=== PATIENT | male | born 1950 | race Caucasian/White ===

== ENCOUNTER 2021-05-19 16:43 | Inpatient (IN) | payer BC, MEDICARE ==
[2021-05-19] MEDS ORDERED: IPRATROPIUM-ALBUTEROL 3 ML NEB INHALATION STA (18:49)
[2021-05-19] MEDS ORDERED: SODIUM CHLORIDE 0.9% 1,000 ML IV STA (18:50)
--- NOTE | 2021-05-19 18:54 | ED ---
General Adult HPI - General Chief complaint: Psychiatric Symptoms Stated complaint: Mental health, Diabetic Time Seen by Provider: 05/19/21 17:05 Source: patient, family, RN notes reviewed, old records reviewed Mode of arrival: ambulatory - History of Present Illness Initial comments: This is a 70-year-old male who presents emergency department with past medical history significant for heart attack COPD and smoking he has also a type II diabetic. Patient states he no longer takes any of his medications for diabetes. Sister states he was brought in because multiple days they have been doing a welfare check on him he is not taking care of himself is not eating and he is hallucinating. Patient believes people snuck into his house where they're with him and he believes this is not hallucinations and his mind. Patient also is hallucinating and seeing bugs as well as been in the room. Patient denies any headache patient denies any numbness weakness. Patient denies any chest pain palpitations or difficulty breathing. Patient does admit that he is slightly short of breath. Patient also complains some increased edema to his legs over the last 3 weeks. Patient denies any recent fever chills or cough per patient denies abdominal pain patient denies nausea vomiting diarrhea. Patient states he sees people in the house that if snuck in a also states he is seeing bugs and things crawling on the [place]. Patient denies any drug use or alcohol use. - Related Data Home Medications Medication Instructions Recorded Confirmed Acarbose [Precose] 50 mg PO BID 05/16/15 06/25/15 Aspirin [Adult Low Dose Aspirin EC] 81 mg PO DAILY 05/16/15 06/25/15 Atorvastatin [Lipitor] 10 mg PO HS 05/16/15 06/25/15 Lisinopril [Prinivil] 5 mg PO W/SUPPER 05/16/15 06/25/15 metFORMIN HCL [Glucophage] 1,000 mg PO BID 05/16/15 06/25/15 Previous Rx's Medication Instructions Recorded Docusate [Colace] 100 mg PO BID #30 capsule 05/17/15 Allergies Allergy/AdvReac Type Severity Reaction Status Date / Time No Known Allergies Allergy Verified 05/19/21 17:10 Review of Systems ROS Statement: Those systems with pertinent positive or pertinent negative responses have been documented in the HPI. ROS Other: All systems not noted in ROS Statement are negative. Past Medical History Past Medical History: Diabetes Mellitus, Hyperlipidemia, Sleep Apnea/CPAP/BIPAP Additional Past Medical History / Comment(s): no cpap used History of Any Multi-Drug Resistant Organisms: None Reported Past Surgical History: Hernia Repair, Tonsillectomy Additional Past Surgical History / Comment(s): fatty tumor removed from upper back, abdominal hernias x 2 most recent 05/17/15 Past Anesthesia/Blood Transfusion Reactions: Previous Problems w/ Anesthesia, Family History of Problems w/ Anesthesia Additional Past Anesthesia/Blood Transfusion Reaction / Comment(s): mother "can't take anesthesia" pt not sure why. pt -hx diff intubation for a surgery about 20 years ago-not sure of surgeon, not done at [facility]. Past Psychological History: No Psychological Hx Reported Smoking Status: Current every day smoker Past Alcohol Use History: None Reported Past Drug Use History: None Reported - Past Family History Mother Family Medical History: Coronary Artery Disease (CAD) Additional Family Medical History / Comment(s): mac degeneration legally blind Father Family Medical History: No Reported History General Exam - General Exam Comments Initial Comments: GENERAL: Patient is well-developed and well-nourished. Patient is nontoxic and well- hydrated and is in mild distress. ENT: Neck is soft and supple. No significant lymphadenopathy is noted. Oropharynx is clear. Dry mucous membranes. Neck has full range of motion without e liciting any pain. EYES: The sclera were anicteric and conjunctiva were pink and moist. Extraocular movements were intact and pupils were equal round and reactive to light. Eyelids were unremarkable. PULMONARY: Patient has bilateral wheezing with crackles bilaterally more the left than the right. CARDIOVASCULAR: There is a regular rate and rhythm without any murmurs gallops or rubs. ABDOMEN: Soft and nontender with normal bowel sounds. SKIN: Skin is clear with no lesions or rashes and otherwise unremarkable. NEUROLOGIC: Patient is alert and oriented x3. Cranial nerves II through XII are grossly intact. Motor and sensory are also intact. Normal speech, volume and content. Symmetrical smile. MUSCULOSKELETAL: Normal extremities with adequate strength and full range of motion. 2+ bilaterally LYMPHATICS: No significant lymphadenopathy is noted PSYCHIATRIC: Patient is hallucinating seeing people in his house and seeing bugs in the room. Course Vital Signs 05/19/21 05/19/21 05/19/21 17:02 17:48 19:42 Temperature 97.1 F L Pulse Rate 91 80 82 Respiratory 18 20 20 Rate Blood Pressure 88/63 98/74 O2 Sat by Pulse 93 L 93 L Oximetry 05/19/21 05/19/21 19:50 20:30 Temperature Pulse Rate 80 83 Respiratory 20 Rate Blood Pressure 92/61 O2 Sat by Pulse 93 L Oximetry Medical Decision Making - Medical Decision Making EKG shows a regular rhythm at 80 bpm there is no P waves noted so it could be junctional. QRS is 165 Q-T intervals 472 QTC is 517. Patient has a right bundle branch block. Chest x-ray shows bilateral pleural effusions and pulmonary edema. I spoke with some physicians agreed to admit the patient admitted the patient wrote admitting orders. Patient received Lasix - Lab Data Result diagrams: 05/19/21 18:59 05/19/21 18:59 Lab Results 05/19/21 05/19/21 05/19/21 Range/Units 18:59 18:59 18:59 WBC 6.0 (3.8-10.6) k/uL RBC 4.80 (4.30-5.90) m/uL Hgb 14.6 (13.0-17.5) gm/dL Hct 46.7 (39.0-53.0) % MCV 97.3 (80.0-100.0) fL MCH 30.4 (25.0-35.0) pg MCHC 31.2 (31.0-37.0) g/dL RDW 14.0 (11.5-15.5) % Plt Count 223 (150-450) k/uL MPV 10.0 Neutrophils % 75 % Lymphocytes % 14 % Monocytes % 8 % Eosinophils % 1 % Basophils % 1 % Neutrophils # 4.5 (1.3-7.7) k/uL Lymphocytes # 0.8 L (1.0-4.8) k/uL Monocytes # 0.5 (0-1.0) k/uL Eosinophils # 0.0 (0-0.7) k/uL Basophils # 0.0 (0-0.2) k/uL Hypochromasia Moderate PT 11.7 (9.0-12.0) sec INR 1.1 (<1.2) APTT 28.0 (22.0-30.0) sec Sodium 136 L (137-145) mmol/L Potassium 4.9 (3.5-5.1) mmol/L Chloride 103 (98-107) mmol/L Carbon Dioxide 26 (22-30) mmol/L Anion Gap 7 mmol/L BUN 37 H (9-20) mg/dL Creatinine 0.97 (0.66-1.25) mg/dL Est GFR (CKD-EPI)AfAm >90 (>60 ml/min/1.73 sqM) Est GFR (CKD-EPI)NonAf 79 (>60 ml/min/1.73 sqM) Glucose 91 (74-99) mg/dL Calcium 8.8 (8.4-10.2) mg/dL Total Bilirubin 0.8 (0.2-1.3) mg/dL AST 27 (17-59) U/L ALT 13 (4-49) U/L Alkaline Phosphatase 166 H (38-126) U/L Troponin I (0.000-0.034) ng/mL NT-Pro-B Natriuret Pep pg/mL Total Protein 5.7 L (6.3-8.2) g/dL Albumin 2.9 L (3.5-5.0) g/dL Urine Color Urine Appearance (Clear) Urine pH (5.0-8.0) Ur Specific [place] (1.001-1.035) Urine Protein (Negative) Urine Glucose (UA) (Negative) Urine Ketones (Negative) Urine Blood (Negative) Urine Nitrite (Negative) Urine Bilirubin (Negative) Urine Urobilinogen (<2.0) mg/dL Ur Leukocyte Esterase (Negative) Urine RBC (0-5) /hpf Urine WBC (0-5) /hpf Ur Squamous Epith Cells (0-4) /hpf Urine Bacteria (None) /hpf Hyaline Casts (0-2) /lpf Urine Mucus (None) /hpf Urine Opiates Screen (NotDetected) Ur Oxycodone Screen (NotDetected) Urine Methadone Screen (NotDetected) Ur Propoxyphene Screen (NotDetected) Ur Barbiturates Screen (NotDetected) U Tricyclic Antidepress (NotDetected) Ur Phencyclidine Scrn (NotDetected) Ur Amphetamines Screen (NotDetected) U Methamphetamines Scrn (NotDetected) U Benzodiazepines Scrn (NotDetected) Urine Cocaine Screen (NotDetected) U Marijuana (THC) Screen (NotDetected) Acetone, Qual Positive (Negative) Coronavirus (PCR) (Not Detectd) 05/19/21 05/19/21 05/19/21 Range/Units 18:59 18:59 18:59 WBC (3.8-10.6) k/uL RBC (4.30-5.90) m/uL Hgb (13.0-17.5) gm/dL Hct (39.0-53.0) % MCV (80.0-100.0) fL MCH (25.0-35.0) pg MCHC (31.0-37.0) g/dL RDW (11.5-15.5) % Plt Count (150-450) k/uL MPV Neutrophils % % Lymphocytes % % Monocytes % % Eosinophils % % Basophils % % Neutrophils # (1.3-7.7) k/uL Lymphocytes # (1.0-4.8) k/uL Monocytes # (0-1.0) k/uL Eosinophils # (0-0.7) k/uL Basophils # (0-0.2) k/uL Hypochromasia PT (9.0-12.0) sec INR (<1.2) APTT (22.0-30.0) sec Sodium (137-145) mmol/L Potassium (3.5-5.1) mmol/L Chloride (98-107) mmol/L Carbon Dioxide (22-30) mmol/L Anion Gap mmol/L BUN (9-20) mg/dL Creatinine (0.66-1.25) mg/dL Est GFR (CKD-EPI)AfAm (>60 ml/min/1.73 sqM) Est GFR (CKD-EPI)NonAf (>60 ml/min/1.73 sqM) Glucose (74-99) mg/dL Calcium (8.4-10.2) mg/dL Total Bilirubin (0.2-1.3) mg/dL AST (17-59) U/L ALT (4-49) U/L Alkaline Phosphatase (38-126) U/L Troponin I 0.017 (0.000-0.034) ng/mL NT-Pro-B Natriuret Pep 7010 pg/mL Total Protein (6.3-8.2) g/dL Albumin (3.5-5.0) g/dL Urine Color Urine Appearance (Clear) Urine pH (5.0-8.0) Ur Specific [place] (1.001-1.035) Urine Protein (Negative) Urine Glucose (UA) (Negative) Urine Ketones (Negative) Urine Blood (Negative) Urine Nitrite (Negative) Urine Bilirubin (Negative) Urine Urobilinogen (<2.0) mg/dL Ur Leukocyte Esterase (Negative) Urine RBC (0-5) /hpf Urine WBC (0-5) /hpf Ur Squamous Epith Cells (0-4) /hpf Urine Bacteria (None) /hpf Hyaline Casts (0-2) /lpf Urine Mucus (None) /hpf Urine Opiates Screen (NotDetected) Ur Oxycodone Screen (NotDetected) Urine Methadone Screen (NotDetected) Ur Propoxyphene Screen (NotDetected) Ur Barbiturates Screen (NotDetected) U Tricyclic Antidepress (NotDetected) Ur Phencyclidine Scrn (NotDetected) Ur Amphetamines Screen (NotDetected) U Methamphetamines Scrn (NotDetected) U Benzodiazepines Scrn (NotDetected) Urine Cocaine Screen (NotDetected) U Marijuana (THC) Screen (NotDetected) Acetone, Qual (Negative) Coronavirus (PCR) Not Detected (Not Detectd) 05/19/21 Range/Units 20:55 WBC (3.8-10.6) k/uL RBC (4.30-5.90) m/uL Hgb (13.0-17.5) gm/dL Hct (39.0-53.0) % MCV (80.0-100.0) fL MCH (25.0-35.0) pg MCHC (31.0-37.0) g/dL RDW (11.5-15.5) % Plt Count (150-450) k/uL MPV Neutrophils % % Lymphocytes % % Monocytes % % Eosinophils % % Basophils % % Neutrophils # (1.3-7.7) k/uL Lymphocytes # (1.0-4.8) k/uL Monocytes # (0-1.0) k/uL Eosinophils # (0-0.7) k/uL Basophils # (0-0.2) k/uL Hypochromasia PT (9.0-12.0) sec INR (<1.2) APTT (22.0-30.0) sec Sodium (137-145) mmol/L Potassium (3.5-5.1) mmol/L Chloride (98-107) mmol/L Carbon Dioxide (22-30) mmol/L Anion Gap mmol/L BUN (9-20) mg/dL Creatinine (0.66-1.25) mg/dL Est GFR (CKD-EPI)AfAm (>60 ml/min/1.73 sqM) Est GFR (CKD-EPI)NonAf (>60 ml/min/1.73 sqM) Glucose (74-99) mg/dL Calcium (8.4-10.2) mg/dL Total Bilirubin (0.2-1.3) mg/dL AST (17-59) U/L ALT (4-49) U/L Alkaline Phosphatase (38-126) U/L Troponin I (0.000-0.034) ng/mL NT-Pro-B Natriuret Pep pg/mL Total Protein (6.3-8.2) g/dL Albumin (3.5-5.0) g/dL Urine Color Yellow Urine Appearance Clear (Clear) Urine pH 5.0 (5.0-8.0) Ur Specific [place] 1.027 (1.001-1.035) Urine Protein 1+ H (Negative) Urine Glucose (UA) Negative (Negative) Urine Ketones Negative (Negative) Urine Blood Negative (Negative) Urine Nitrite Negative (Negative) Urine Bilirubin 1+ H (Negative) Urine Urobilinogen 4.0 (<2.0) mg/dL Ur Leukocyte Esterase Negative (Negative) Urine RBC 4 (0-5) /hpf Urine WBC 3 (0-5) /hpf Ur Squamous Epith Cells 1 (0-4) /hpf Urine Bacteria Rare H (None) /hpf Hyaline Casts 66 H (0-2) /lpf Urine Mucus Rare H (None) /hpf Urine Opiates Screen Not Detected (NotDetected) Ur Oxycodone Screen Not Detected (NotDetected) Urine Methadone Screen Not Detected (NotDetected) Ur Propoxyphene Screen Not Detected (NotDetected) Ur Barbiturates Screen Not Detected (NotDetected) U Tricyclic Antidepress Not Detected (NotDetected) Ur Phencyclidine Scrn Not Detected (NotDetected) Ur Amphetamines Screen Not Detected (NotDetected) U Methamphetamines Scrn Not Detected (NotDetected) U Benzodiazepines Scrn Not Detected (NotDetected) Urine Cocaine Screen Not Detected (NotDetected) U Marijuana (THC) Screen Not Detected (NotDetected) Acetone, Qual (Negative) Coronavirus (PCR) (Not Detectd) Disposition Clinical Impression: Pulmonary edema, Hallucinations Disposition: ADMITTED IP TO THIS HOSP Referrals: None,Stated [Primary Care Provider] - 1-2 days Time of Disposition: 21:35
[2021-05-19 19:15] LABS: Basophils % (A) 1 %; Eosinophils % (A) 1 %; HCT 46.7 % (39.0-53.0); HGB 14.6 gm/dL (13.0-17.5); Hypochromasia Moderate; Lymphocytes # (A) 0.8 k/uL (1.0-4.8); Lymphocytes % (A) 14 %; MCH 30.4 pg (25.0-35.0); MCHC 31.2 g/dL (31.0-37.0); MCV 97.3 fL (80.0-100.0); Monocytes # (A) 0.5 k/uL (0-1.0); Monocytes % (A) 8 %; Neutrophils # (A) 4.5 k/uL (1.3-7.7); Neutrophils % (A) 75 %; Platelet Count 223 k/uL (150-450)
[2021-05-19 19:27] LABS: INR 1.1 (<1.2); Prothrombin Time 11.7 sec (9.0-12.0)
[2021-05-19 19:28] LABS: ALT 13 U/L (4-49); AST 27 U/L (17-59); African American GFR (CKD) >90 (>60 ml/min/1.73 sqM); Albumin 2.9 g/dL (3.5-5.0); Alkaline Phosphatase 166 U/L (38-126); Anion Gap 7 mmol/L; Blood Urea Nitrogen 37 mg/dL (9-20); Calcium 8.8 mg/dL (8.4-10.2); Carbon Dioxide 26 mmol/L (22-30); Chloride 103 mmol/L (98-107); Glucose 91 mg/dL (74-99); Non-African American GFR(CKD) 79 (>60 ml/min/1.73 sqM); Sodium 136 mmol/L (137-145); Total Bilirubin 0.8 mg/dL (0.2-1.3); Total Protein 5.7 g/dL (6.3-8.2)
[2021-05-19 19:30] LABS: Potassium 4.9 mmol/L (3.5-5.1)
--- NOTE | 2021-05-19 19:32 | XR ---
EXAMINATION TYPE: XR chest 2V DATE OF EXAM: 05/19/2021 7:27 PM COMPARISON:None TECHNIQUE: Frontal and lateral views of the chest. CLINICAL INDICATION:Male, 70 years old with history of altered mental status; FINDINGS: Lungs/Pleura: There is no evidence of focal consolidation, or pneumothorax. Is blunting of the costo phrenic angles with associated subsegmental atelectasis. Pulmonary vascularity: Unremarkable. Heart/mediastinum: Cardiomediastinal silhouette is partially obscured due to overlying and adjacent o pacities. Musculoskeletal: No acute osseous pathology. IMPRESSION: Cardiomegaly, pulmonary vascular congestion and bilateral pleural effusions. Correlate with BNP for c ongestive heart failure.
--- NOTE | 2021-05-19 19:45 | CT ---
EXAMINATION TYPE: CT brain wo con CT DLP: 1188.4 mGycm, Automated exposure control for dose reduction was used. DATE OF EXAM: 05/19/2021 7:34 PM COMPARISON: None. CLINICAL INDICATION:Male, 70 years old with history of hallucinations, Altered mental status. TECHNIQUE: Brain: Multiple axial CT images of the brain were obtained without IV contrast. FINDINGS: Brain: Extra-axial spaces: No abnormal extra-axial fluid collections. Ventricular system: Within normal limits Cerebral parenchyma: No acute intraparenchymal hemorrhage or mass effect. The greenwood-white junction is well differentiated. Scattered hypoattenuating areas are seen within the white matter. Cerebellum: Unremarkable. Mass effect: No evidence of midline shift. Intracranial vasculature: Atherosclerotic calcifications of the intracranial vessels. Soft tissues: Normal. Calvarium/osseous structures: No depressed skull fracture. Paranasal sinuses and mastoid air cells: Clear. Visualized orbits: Orbital contents are intact. IMPRESSION: 1. No acute intracranial process. 2. Nonspecific white matter changes, likely secondary to chronic small vessel ischemic disease.
[2021-05-19 21:10] LABS: Appearance,Urine Clear (Clear); Bacteria,Urine Rare /hpf; Bilirubin,Urine 1+ (Negative); Blood,Urine Negative (Negative); Color,Urine Yellow; Glucose,Urine (UA) Negative (Negative); Hyaline Casts,Urine 66 /lpf (0-2); Ketones,Urine Negative (Negative); Leukocyte Esterase,Urine Negative (Negative); Mucus,Urine Rare /hpf; Nitrite,Urine Negative (Negative); Protein,Urine 1+ (Negative); RBC,Urine 4 /hpf (0-5); Specific Gravity,Urine 1.027 (1.001-1.035); Squamous Epithelial Cell,Urine 1 /hpf (0-4); WBC,Urine 3 /hpf (0-5)
[2021-05-19 21:16] LABS: Amphetamine Screen,Urine Not Detected (NotDetected); Barbiturate Screen,Urine Not Detected (NotDetected); Benzodiazepines Screen,Urine Not Detected (NotDetected); Cocaine Screen,Urine Not Detected (NotDetected); Methadone Screen, Urine Not Detected (NotDetected); Opiate Screen,Urine Not Detected (NotDetected); Oxycodone Screen, Urine Not Detected (NotDetected); Phencyclidine Screen,Urine Not Detected (NotDetected); Tricyclic Antidepressant,Urine Not Detected (NotDetected); Urn Cannabinoid Scrn Not Detected (NotDetected)
[2021-05-19] MEDS ORDERED: FUROSEMIDE 10 MG/ML 2 ML VIAL IV STA (21:25)
[2021-05-19] MEDS: FUROSEMIDE 10 MG/ML 4 ML VIAL IV SCH (22:08)
[2021-05-20] MEDS ORDERED: IPRATROPIUM-ALBUTEROL 3 ML NEB INHALATION PRN (02:23)
--- NOTE | 2021-05-20 02:43 | P.HPIM ---
History of Present Illness H&P Date: 05/19/21 Chief Complaint: hallucination 70 year old male with hypertension , COPD, DM patient comes in today for evaluation of hallucination . patient sister visits him regularly , and noticed he has not been taking care of himself and now reporting visual hallucination , where he thinks that there are people living with him patient lives alone, he admits to frequent falling ,he does not use any device to help him with ambulation , he has weak vision due to cataract, and has not been taking his meds. he reports orthopnea, dyspnea at rest and bilateral feet swelling. he continues to smoke, and reports decrease PO intake due to difficulty with access to food as he waits for his sister to bring him meals , or grocery . patient otherwise denies any fever, chills, urinary or bowel habit changes, denies nausea vomiting or abd pain . he denies any mental health issues. during my interview he keep turning to his right side to talk to his sister who was not in the room. and I have to remind him that no one is there, then he would ask where did she go. in the ED earlier he was also noted to mention some bugs , which apparently is part of his visual hallucination s he denies taking any recreational drugs or alcohol blood work in the ED overall unremarkable Review of Systems Pertinent positives as noted in HPI. All other systems were reviewed and are negative Past Medical History Past Medical History: Diabetes Mellitus, Hyperlipidemia, Sleep Apnea/CPAP/BIPAP Additional Past Medical History / Comment(s): no cpap used History of Any Multi-Drug Resistant Organisms: None Reported Past Surgical History: Hernia Repair, Tonsillectomy Additional Past Surgical History / Comment(s): fatty tumor removed from upper back, abdominal hernias x 2 most recent 05/17/15 Past Anesthesia/Blood Transfusion Reactions: Previous Problems w/ Anesthesia, Family History of Problems w/ Anesthesia Additional Past Anesthesia/Blood Transfusion Reaction / Comment(s): mother "can't take anesthesia" pt not sure why. pt -hx diff intubation for a surgery about 20 years ago-not sure of surgeon, not done at [facility]. Past Psychological History: No Psychological Hx Reported Smoking Status: Current every day smoker Past Alcohol Use History: None Reported Past Drug Use History: None Reported - Past Family History Mother Family Medical History: Coronary Artery Disease (CAD) Additional Family Medical History / Comment(s): gabriela degeneration legally blind Father Family Medical History: No Reported History Medications and Allergies Home Medications Medication Instructions Recorded Confirmed Type ARIPiprazole [Abilify] 10 mg PO HS 05/19/21 05/19/21 History Cholecalciferol [Vitamin D3 (25 50 mcg PO DAILY 05/19/21 05/19/21 History Mcg = 1000 Iu)] FLUoxetine HCL [PROzac] 20 mg PO DAILY 05/19/21 05/19/21 History FLUoxetine HCL [PROzac] 40 mg PO DAILY 05/19/21 05/19/21 History Ketorolac 0.5% Ophth Soln [Acular 1 drop RIGHT EYE QID 05/19/21 05/19/21 History 0.5%] Loratadine [Claritin] 10 mg PO DAILY 05/19/21 05/19/21 History Melatonin 10 mg PO HS 05/19/21 05/19/21 History Methylphenidate HCl [Metadate CD] 60 mg PO DAILY 05/19/21 05/19/21 History Montelukast [Singulair] 10 mg PO DAILY 05/19/21 05/19/21 History Omeprazole 20 mg PO DAILY 05/19/21 05/19/21 History cloNIDine HCL 0.1 mg PO HS PRN 05/19/21 05/19/21 History Allergies Allergy/AdvReac Type Severity Reaction Status Date / Time No Known Allergies Allergy Verified 05/19/21 21:40 Physical Exam Vitals: Vital Signs Temp Pulse Resp BP Pulse Ox 05/19/21 23:45 88 20 95/57 93 L 05/19/21 22:00 88 20 91/61 92 L 05/19/21 20:30 83 20 92/61 93 L 05/19/21 19:50 80 05/19/21 19:42 82 20 05/19/21 17:48 80 20 98/74 93 L 05/19/21 17:02 97.1 F L 91 18 88/63 93 L Intake and Output 05/19/21 05/19/21 05/20/21 14:59 22:59 06:59 Other: Weight 63.503 kg Constitutional: No acute distress, conversant, pleasant, cachetic Eyes: Anicteric sclerae, moist conjunctiva, Pupils equal round reactive to light ENMT: NC/ echymosis over the right suborbital area Oropharynx clear, no erythema, or exudates Neck: Supple, no masses, + JVD No carotid bruits No thyromegaly Lungs: poor effort, diminished breath sounds Clear to percussion Normal respiratory effort, no accessory muscle use Cardiovascular: Heart distant sounds No murmurs, gallops, or rubs + 2 peripheral edema Abdominal: Soft Nontender, no guarding, rebound or rigidity Abdomen moving with respiration Normoactive bowel sounds No hepatomegaly, No splenomegaly No palpable mass No abdominal wall hernia noted Skin: echymosis over bilateral forearm , otherwise Normal temperature, tone, texture, turgor Extremities: No digital cyanosis Pedal pulses undetectable due to pedal edema , capillary refill immediate Radial pulses intact and symmetrical No calf tenderness Psychiatric: Alert and oriented to person, place Neuro Muscles Strength -4/5 in all 4 extremities Sensation to light touch grossly present throughout Cranial nerves II-XII grossly intact No focal sensory deficits Lymphatics: no palpable cervical or supraclavicular , or inguinal lymph nodes Results CBC & Chem 7: 05/19/21 18:59 05/19/21 18:59 Labs: Abnormal Lab Results - Last 24 Hours (Table) 05/19/21 05/19/21 05/19/21 Range/Units 18:59 18:59 20:55 Lymphocytes # 0.8 L (1.0-4.8) k/uL Sodium 136 L (137-145) mmol/L BUN 37 H (9-20) mg/dL Alkaline Phosphatase 166 H (38-126) U/L Total Protein 5.7 L (6.3-8.2) g/dL Albumin 2.9 L (3.5-5.0) g/dL Urine Protein 1+ H (Negative) Urine Bilirubin 1+ H (Negative) Urine Bacteria Rare H (None) /hpf Hyaline Casts 66 H (0-2) /lpf Urine Mucus Rare H (None) /hpf Assessment and Plan Assessment: failure to thrive progressive dyspnea with pleural effusion rulel out CHF visual hallucination DM hypertension medical non compliance with home meds afib rate controlled , not on anticoagulation plan supportive care monitor electrolytes , avoid refeeding syndrome follow up PO4, Mg , K check echocardiogram IV diuresis with lasix monitor vital signs cardiology eval fall precaution s verify home meds PT eval manager cardiac cath DVT PPX heparin sc tid anticipated length of stay < 2 midnights could not make a decision code status
[2021-05-20 05:52] VITALS: TEMP 97.9
[2021-05-20] MEDS: FUROSEMIDE 10 MG/ML 4 ML VIAL IV SCH (07:01)
[2021-05-20] MEDS ORDERED: PANTOPRAZOLE 40 MG TABLET PO SCH (07:30)
[2021-05-20] MEDS ORDERED: cloNIDine HCL 0.1 MG TAB PO PRN (07:39)
[2021-05-20] MEDS ORDERED: HEPARIN SODIUM,PORCINE/PF 5,000 UNIT/0.5 ML SYRINGE SQ SCH (08:00)
--- NOTE | 2021-05-20 08:14 | XR ---
EXAMINATION TYPE: XR chest 1V portable DATE OF EXAM: 05/20/2021 COMPARISON: Chest x-ray 05/19/2021 HISTORY: Shortness of breath TECHNIQUE: Single frontal view of the chest is obtained. FINDINGS: Bilateral airspace disease has progressed in the interval, bilateral pleural effusions are also present. No evident pneumothorax. Patient is rotated. Heart is obscured by abnormal density wit hin the chest. There are overlying leads. IMPRESSION: Correlate for congestive heart failure, pneumonia not excluded. Follow-up recommended.
[2021-05-20 08:21] VITALS: BP 104/51; PULSE 89; RESP 18
[2021-05-20] MEDS ORDERED: CHOLECALCIFEROL 25 MCG (1000 IU) TABLET PO SCH (09:00)
[2021-05-20] MEDS ORDERED: LORATADINE 10 MG TAB PO SCH (09:00)
[2021-05-20] MEDS ORDERED: MONTELUKAST 10 MG TAB PO SCH (09:00)
[2021-05-20] MEDS ORDERED: KETOROLAC 0.5% OPHTH DROPS 5 ML BTL RIGHT EYE SCH (09:00)
[2021-05-20] MEDS ORDERED: FLUoxetine HCL 20 MG CAP PO SCH ×2 (09:00)
[2021-05-20] MEDS ORDERED: CALCIUM CHLORIDE 100 MG/ML 10 ML SYRINGE ONE (09:30)
[2021-05-20] MEDS ORDERED: SODIUM BICARB 8.4% 50 ML SYR (1 MEQ/ML) ONE (09:30)
[2021-05-20] MEDS ORDERED: EPINEPHrine 10 ML SYRINGE (0.1 MG/ML) ONE (09:30)
[2021-05-20] MEDS ORDERED: ALTEPLASE 50 MG VIAL IV STA (09:43)
--- NOTE | 2021-05-20 10:07 | P.EN ---
I called a CODE BLUE today due to cardiac arrest. Code was called at 9:35 and compressions started immediately. Initial rhythm was asystole. 4 x amps of epi were delivered. Pt also received bicarb amps x 2, calcium chloride amp x 1. Pt was intubated at 0943. Pulse checks at 0938, 0940, 0942, 0944 were PEA. Pulse checks at 0946 and 0948 were again asystole. Code was stopped at 0948, and time of was called at same time. Call was made to patient's sister and message left. Total Code Time is 13 minutes.
--- NOTE | 2021-05-20 10:17 | P.DS ---
Providers Date of admission: 05/19/21 21:36 Expected date of discharge: 05/20/21 Attending physician: Johana Jesus MD Consults: 05/19/21 21:36 Consult Physician Routine Consulting Provider: [facility] Consult Reason/Comments: Pulmonary edema Do you want consulting provider notified?: Yes Primary care physician: Stated None Hospital Course: Congestive Heart Failure Exacerbation, unknown EF COPD Toxic/Metabolic Encephalopathy with visual hallucinations HTN DM II Permanent Atrial Fibrillation, rate controlled 70 year old male with hypertension , COPD and active smoker, DM, CHF. Pt presented for evaluation with sister who reported he had a hallucination and he hmiself reported increasing orthopnea, dyspnea even at rest. CXR demonstrated b/l vascular congestion and pleural effusions. Pt was started on oxygen and IV diuretics. Pt was also having hallucinations throughout admitting providers visit. This morning, patient had been having agitation issues and had removed his oxygen several times. I saw him in the morning and replaced his oxygen to his face and requested he keep it on. At the time he was awake and moving e xtremities, opened his eyes to my voice, but did not participate in interview. I was called to bedside for agitation and restlessness and by the time of my evaluation, noted that patient was not responsive. Code blue was called and patient was coded for 13 minutes but could not acheive ROSC. Pt due to complications of congestive heart failure. Smoking did contribute to . I spent 40 minutes with this patient for discharge. Assessment: Pt , agonal breathing, no pulse, heart sounds. Plan - Discharge Summary New Discharge Prescriptions: No Action Montelukast [Singulair] 10 mg PO DAILY Cholecalciferol [Vitamin D3 (25 Mcg = 1000 Iu)] 50 mcg PO DAILY Methylphenidate HCl [Metadate CD] 60 mg PO DAILY Ketorolac 0.5% Ophth Soln [Acular 0.5%] 1 drop RIGHT EYE QID RX: FLUoxetine HCL [PROzac] 20 mg PO DAILY RX: Omeprazole 20 mg PO DAILY FLUoxetine HCL [PROzac] 40 mg PO DAILY RX: cloNIDine HCL 0.1 mg PO HS PRN PRN Reason: Anxiety Loratadine [Claritin] 10 mg PO DAILY ARIPiprazole [Abilify] 10 mg PO HS RX: Melatonin 10 mg PO HS Discharge Medication List ARIPiprazole [Abilify] 10 mg PO HS 05/19/21 [History] Cholecalciferol [Vitamin D3 (25 Mcg = 1000 Iu)] 50 mcg PO DAILY 05/19/21 [History] FLUoxetine HCL [PROzac] 40 mg PO DAILY 05/19/21 [History] Ketorolac 0.5% Ophth Soln [Acular 0.5%] 1 drop RIGHT EYE QID 05/19/21 [History] Loratadine [Claritin] 10 mg PO DAILY 05/19/21 [History] Methylphenidate HCl [Metadate CD] 60 mg PO DAILY 05/19/21 [History] Montelukast [Singulair] 10 mg PO DAILY 05/19/21 [History] RX: FLUoxetine HCL [PROzac] 20 mg PO DAILY 05/19/21 [History] RX: Melatonin 10 mg PO HS 05/19/21 [History] RX: Omeprazole 20 mg PO DAILY 05/19/21 [History] RX: cloNIDine HCL 0.1 mg PO HS PRN 05/19/21 [History] Follow up Appointment(s)/Referral(s): None,Stated [Primary Care Provider] - 1-2 days Discharge Disposition: - Preliminary Cause of Preliminary Cause of : Congestive Heart Failure
[2021-05-20] MEDS ORDERED: SODIUM CHLORIDE 0.9% 50 ML MINI-BAG IV ONE (10:44)
[2021-05-20] MEDS ORDERED: ARIPiprazole 10 MG TAB PO SCH (21:00)
[2021-05-20] MEDS ORDERED: MELATONIN 5 MG TABLET PO SCH (21:00)
--- NOTE | 2021-06-06 16:22 | CDI ---
Documentation Clarification Form Date: 06/06/2021 04:10:23 PM From: Angela Montez RN, CCDS Email: [email or web address] Admit Date: 05/19/2021 09:36:00 PM Patient Name: Arnol Moralez Visit Number: [id number] Discharge Date: 05/20/2021 09:48:00 AM ATTENTION: The Clinical Documentation Specialists (CDI) and [facility] Coding Staff appreciate your assistance in clarifying documentation. Please respond to the clarification below the line at the bottom and electronically sign. The CDI & [facility] Coding staff will review the response and follow-up if needed. Please note: Queries are made part of the Legal Health Record. If you have any questions, please contact the author of this message via ITS. Dr. Wyatt Palacios Your patient had dyspnea, increasing oxygen requirements and went into cardiac arrest. Based on this information and the findings below, is there an additional diagnosis that is clinically appropriate for this patient? History/Risk Factors: hypertension, COPD and active smoker, DM, CHF Tobacco use: was current every day smoker Clinical Indicators: hallucinations, increasing orthopnea, dyspnea even at rest. CXR demonstrated b/l vascular congestion and pleural effusions Vital signs: RR 28 on 05/20 Pulse oximetry: 80% on 05/20 05/19 Lung/Breathing assessment: Patient has bilateral wheezing with crackles bilaterally more the left than the right. Treatment: O2 non-rebreather mask, IV Lasix Breathing tx: Albuterol Is there an additional diagnosis that is clinically appropriate for this patient? [x] Acute Hypoxic Respiratory Failure [ ] Acute Hypercapnic Respiratory Failure [ ] Other Diagnosis, please specify [ ] Unable to determine MTDD
--- NOTE | 2021-06-06 16:40 | CDI ---
Documentation Clarification Form Date: 06/06/2021 04:25:35 PM From: Angela Montez RN, CCDS Email: [email or web address] Admit Date: 05/19/2021 09:36:00 PM Patient Name: Arnol Moralez Visit Number: [id number] Discharge Date: 05/20/2021 09:48:00 AM ATTENTION: The Clinical Documentation Specialists (CDI) and [facility] Coding Staff appreciate your assistance in clarifying documentation. Please respond to the clarification below the line at the bottom and electronically sign. The CDI & [facility] Coding staff will review the response and follow-up if needed. Please note: Queries are made part of the Legal Health Record. If you have any questions, please contact the author of this message via ITS. Dr. Wyatt Palacios Your patient has the documented diagnosis of unspecified CHF exacerbation in the progress notes. Additional information regarding the type of CHF is requested. History/Risk Factors: hypertension, COPD and active smoker, DM, CHF Tobacco use: was current every day smoker Clinical Indicators: hallucinations, increasing orthopnea, dyspnea even at rest. CXR demonstrated b/l vascular congestion and pleural effusions Discharge summary: Congestive Heart Failure Exacerbation, unknown EF 05/19 BNP: 7010 05/19 CXR: Cardiomegaly, pulmonary vascular congestion and bilateral pleural effusions. Correlate with BNP for congestive heart failure. Vital signs: RR 28 on 05/20 Pulse oximetry: 80% on 05/20 05/19 Lung/Breathing assessment: Patient has bilateral wheezing with crackles bilaterally more the left than the right. Treatment: O2 non-rebreather mask, IV Lasix 20mg Q12H Breathing tx: albuterol Please specify type of CHF: [x] Acute systolic CHF [ ] Acute diastolic CHF [ ] Acute systolic and diastolic CHF [ ] Other [ ] Unable to determine MTDD
== END 2021-05-20 09:48 | disposition expired | DRG 291 ==
LOC: EC 16:43 → 3SCARD 21:36
PROVIDERS: ADMIT Internal Medicine; ATTEND Internal Medicine
PROC: 0BH17EZ Insertion of Endotracheal Airway into Trachea, Via Natural or Artificial Opening (ICD-10-PCS; principal; 2021-05-19)
PROC: 5A12012 Performance of Cardiac Output, Single, Manual (ICD-10-PCS; 2021-05-20)
DX: I11.0 Hypertensive heart disease with heart failure (principal); G92.8 Other toxic encephalopathy; J96.01 Acute respiratory failure with hypoxia; I50.21 Acute systolic (congestive) heart failure; I48.21 Permanent atrial fibrillation; I46.2 Cardiac arrest due to underlying cardiac condition; Z20.822 Contact with and (suspected) exposure to COVID-19; R62.7 Adult failure to thrive; E11.36 Type 2 diabetes mellitus with diabetic cataract; E78.5 Hyperlipidemia, unspecified; F17.210 Nicotine dependence, cigarettes, uncomplicated; I25.2 Old myocardial infarction; H26.9 Unspecified cataract; I45.10 Unspecified right bundle-branch block; J44.9 Chronic obstructive pulmonary disease, unspecified; R29.6 Repeated falls; Z79.82 Long term (current) use of aspirin; Z79.899 Other long term (current) drug therapy; Z82.1 Family history of blindness and visual loss; Z82.49 Family history of ischemic heart disease and other diseases of the circulatory system; Z91.14 Patient's other noncompliance with medication regimen; Z91.19 Patient's noncompliance with other medical treatment and regimen; R44.1 Visual hallucinations; Z91.81 History of falling; Z79.84 Long term (current) use of oral hypoglycemic drugs
CPT/HCPCS: 36415; 70450; 71045; 71046; 80053; 80306; 81001; 82009; 83880; 84484; 85025; 85610; 85730; 87635; 93005; 94640; 96360; 96361; 99285